=== PATIENT | male | born 1980 | race Caucasian/White ===

== ENCOUNTER 2020-12-03 05:24 | Day surgery (SDC) | payer OTHER ==
[2020-11-28 17:24] VITALS: BMI 29.9
[2020-12-03 09:34] VITALS: TEMP 97.1
[2020-12-03 10:16] VITALS: BP 114/82; PULSE 86
== END 2020-12-03 10:24 | disposition home or self-care (01) ==
LOC: JASU-ENDO 05:24
PROVIDERS: ATTEND Internal Medicine Gastroenterology
PROC: 0DB68ZX Excision of Stomach, Via Natural or Artificial Opening Endoscopic, Diagnostic (ICD-10-PCS; 2020-12-03)
PROC: 0DB28ZX Excision of Middle Esophagus, Via Natural or Artificial Opening Endoscopic, Diagnostic (ICD-10-PCS; 2020-12-03)
PROC: 0DB38ZX Excision of Lower Esophagus, Via Natural or Artificial Opening Endoscopic, Diagnostic (ICD-10-PCS; 2020-12-03)
PROC: 0DB48ZX Excision of Esophagogastric Junction, Via Natural or Artificial Opening Endoscopic, Diagnostic (ICD-10-PCS; principal; 2020-12-03 09:15)
DX: K21.9 Gastro-esophageal reflux disease without esophagitis (principal); K29.50 Unspecified chronic gastritis without bleeding; K44.9 Diaphragmatic hernia without obstruction or gangrene
CPT/HCPCS: 88305-TC; 88342-TC